=== PATIENT | female | born 1960 | race Caucasian/White ===

== ENCOUNTER 2021-08-09 12:23 | Emergency (ER) | payer BC, SELFPAY ==
--- NOTE | ~2021-08-09 | XR_ITS ---
EXAMINATION: XR chest 2V DATE: 08/09/2021 13:04 INDICATION: Cough and shortness of breath TECHNIQUE: PA and lateral views of the chest are obtained. COMPARISON: None available FINDINGS: The lungs are free of acute opacities. There is scarring of the lung apices. There is no pl eural effusion or pneumothorax. The cardiomediastinal silhouette is normal. There is moderate thoraci c spondylosis. IMPRESSION: 1. No acute cardiopulmonary abnormality. Reviewed, dictated and finalized at location A.
[2021-08-09 12:41] VITALS: BP 129/75; PULSE 99; RESP 20; TEMP 37.9; O2SAT 99
[2021-08-09 13:01] VITALS: BP 129/75; PULSE 99; RESP 20; TEMP 37.9; O2SAT 99
--- NOTE | 2021-08-09 13:34 | ED.URI ---
HPI - URI/Sore Throat General Chief Complaint: Upper Respiratory Infection Stated Complaint: Cough,Congestion,Shortness of Breath Time Seen by Provider: 08/09/21 13:09 Source: patient and RN notes reviewed Mode of arrival: ambulatory Limitations: no limitations History of Present Illness HPI Narrative: Patient presents today complaining of 3-week history of productive cough with recent development of shortness of breath with exertion, wheezing, continuous postnasal drainage, frontal headache that started this morning. Denies fever at home, but temp of 100.3 upon arrival. She has been using cough drops, but no other [id number] medications during this duration of illness. MD elicited complaint: fever and cough Related Data Home Medications Medication Instructions Recorded Confirmed fluvoxamine 150 mg PO DAILY 08/09/21 08/09/21 pantoprazole 40 mg PO DAILY 08/09/21 08/09/21 progesterone micronized 200 mg PO DAILY 08/09/21 08/09/21 telmisartan-hydrochlorothiazid 1 tablet PO DAILY 08/09/21 08/09/21 thyroid (pork) [[facility] Thyroid] 90 mg PO DAILY 08/09/21 08/09/21 Allergies Allergy/AdvReac Type Severity Reaction Status Date / Time No Known Allergies Allergy Verified 08/09/21 13:01 Review of Systems Review of Systems: CONSTITUTIONAL: Denies body aches, chills, or sweats.+ Fever, fatigue EYES: Denies visual changes, redness, or discharge. ENT: Denies rhinorrhea, congestion, sore throat, or otalgia.+ Nasal drip CARDIOVASCULAR: Denies chest pain, palpitations, or edema. RESPIRATORY: + Cough, wheezing, shortness of breath with exertion GASTROINTESTINAL: Denies abdominal pain, nausea, vomiting, or diarrhea. GENITOURINARY: Denies dysuria or hematuria. SKIN: Denies rash, itching, or wounds. MUSCULOSKELETAL: Denies back pain, joint pain, or myalgia. NEUROLOGIC: Denies numbness, tingling, or weakness.+ Headache PSYCH: Denies depression or anxiety. [facility] Past Medical History Medical History (Updated 08/09/21 @ 13:44 by Bing Arias, CONCR[employer]E [employer]OR [employer]ER, ) GERD (gastroesophageal reflux disease) Hypertension Hypothyroidism Irritable bowel syndrome Surgical History Surgical History (Updated 08/09/21 @ 13:42 by Bing Arias, CONCRETE [employer]OR [employer]ST[employer]ER, ) History of left knee replacement Comments At time of signature, I have reviewed and agree with nursing past medical, surgical, social and family history unless otherwise noted. Please see nursing chart for further information. There is no relevant family history pertinent to the presenting complaint Exam Narrative: GENERAL: Ill-appearing, well-nourished, and in no acute distress. HEAD: Normocephalic, atraumatic. EYES: EOMI. No redness or drainage. Conjunctivae normal. ENT: Mucous membranes pink and moist. Nares clear. No rhinorrhea. TMs normal bilaterally. Throat normal. Uvula midline. NECK: Normal AROM. Supple. No lymphadenopathy. CHEST: No respiratory distress. Clear to auscultation. HEART: Regular rate and rhythm. No murmur appreciated. Normal peripheral pulses. EXTREMITIES: Normal range of motion. No edema. SKIN: Warm, dry, no rash. Capillary refill normal. Normal skin turgor. NEURO: No focal deficits. Alert and oriented x3. Gait steady. PSYCH: Normal affect. No signs of depression or anxiety. Course Course Level of Care: Express Care Visit Vital Signs Vital signs: Vital Signs Temperature 100.3 F H 08/09/21 12:41 Pulse Rate 99 08/09/21 12:41 Respiratory Rate 20 08/09/21 12:41 Blood Pressure 129/75 08/09/21 12:41 Pulse Oximetry 99 08/09/21 12:41 Temperature 100.3 F H 08/09/21 13:01 Pulse Rate 99 08/09/21 13:01 Respiratory Rate 20 08/09/21 13:01 Blood Pressure 129/75 08/09/21 13:01 Pulse Oximetry 99 08/09/21 13:01 Reviewed. Pt has been instructed to follow up with her PCP regarding her elevated blood pressure today. MDM - URI/Sore Throat Differential Diagnosis Differential diagnosis: Likely upper respiratory infection, sinusitis,
== END 2021-08-09 13:50 | disposition home or self-care (01) ==
PROVIDERS: Emergency Provider Nurse Practitioner; PCP Nurse Practitioner
DX: J01.90 Acute sinusitis, unspecified (principal); B96.89 Other specified bacterial agents as the cause of diseases classified elsewhere; I10 Essential (primary) hypertension; E03.9 Hypothyroidism, unspecified; J40 Bronchitis, not specified as acute or chronic
CPT/HCPCS: 71046; 99213; G0463